=== PATIENT | male | born 1990 | race Two or more races ===

== ENCOUNTER 2019-12-12 10:23 | Emergency (ER) | payer MEDICAID ==
[~2019-12-12] VITALS: Ht 182.9 cm; Wt 102.0 kg
[2019-12-12 10:34] VITALS: BP 118/86
[2019-12-12] MEDS ORDERED: TETANUS, DIPHTHERIA, PERTUSSIS VAC/PF 0.5ML (>7YR OLD) IM ONE (11:00)
[2019-12-12] MEDS ORDERED: BACITRACIN ZINC OINT UDPKT TOP ONE (11:00)
[2019-12-12] MEDS ORDERED: LIDOCAINE HCL/PF 1% 10 MG/ML 5ML VIAL IJ ONE (11:00)
[2019-12-12] MEDS ORDERED: IBUPROFEN 600MG TABLET PO ONE (11:00)
== END 2019-12-12 13:18 | disposition home or self-care (01) ==
LOC: ER 10:23
DX: S61.411A Laceration without foreign body of right hand, initial encounter (principal); S50.12XA Contusion of left forearm, initial encounter; S50.11XA Contusion of right forearm, initial encounter; S00.03XA Contusion of scalp, initial encounter; Y00.XXXA Assault by blunt object, initial encounter; Y93.89 Activity, other specified; Y92.89 Other specified places as the place of occurrence of the external cause
CPT/HCPCS: 12002; 73090; 73130; 90471; 90715; 99284; J3490